=== PATIENT | male | born 1985 | race African-American/Black ===

== ENCOUNTER 2017-01-09 12:54 | Emergency (ER) | payer MEDICAID, OTHER | END 2017-01-09 13:37 | disposition left against medical advice (07) | LOC: ER 12:54 | DX: T14.8XXA Other injury of unspecified body region, initial encounter (principal); Z53.21 Procedure and treatment not carried out due to patient leaving prior to being seen by health care provider ==

== ENCOUNTER 2018-10-06 14:16 | Emergency (ER) | payer MEDICAID ==
[~2018-10-06] VITALS: Ht 167.6 cm; Wt 72.6 kg
[2018-10-06 15:28] VITALS: BP 141/96
== END 2018-10-06 16:04 | disposition home or self-care (01) ==
LOC: ER 14:20
DX: J20.9 Acute bronchitis, unspecified (principal); F17.210 Nicotine dependence, cigarettes, uncomplicated

== ENCOUNTER 2020-01-10 13:52 | Emergency (ER) | payer MEDICAID ==
[~2020-01-10] VITALS: Ht 167.6 cm; Wt 68.9 kg
[2020-01-10 14:12] VITALS: BP 139/92
[2020-01-10] MEDS ORDERED: IBUPROFEN 800 MG TAB PO ONE (15:45)
== END 2020-01-10 15:53 | disposition home or self-care (01) ==
LOC: ER 13:52
DX: K04.7 Periapical abscess without sinus (principal); F17.210 Nicotine dependence, cigarettes, uncomplicated